=== PATIENT | male | born 1950 | race African-American/Black ===

== ENCOUNTER 2017-06-05 11:21 | Observation (INO) ==
[2017-06-05 11:53] LABS: Basophils # 0.1 10*3/uL (0.0-0.2); Basophils % 1.3 % (0.0-0.8); Eosinophils # 0.1 10*3/uL (0.0-0.87); Eosinophils % 3.5 % (0.00-10.9); Hematocrit 41.5 VOL% (42.0-52.0); Hemoglobin 14.4 GM/DL (14.0-18.0); Lymphocytes # 1.6 10*3/uL (1.4-4.0); Lymphocytes % 41.1 % (21.2-54.2); Mean Corpuscular HGB Conc 34.7 GM/DL (32-36); Mean Corpuscular Hemoglobin 33 PG (27-34); Mean Corpuscular Volume 93.7 FL (87-102); Mean Platelet Volume 9.5 FL (9.6-12.0); Monocytes # 0.3 10*3/uL (0.11-0.8); Monocytes % 8.5 % (1.7-12.7); Neutrophils # 1.8 10*3/uL (1.4-7.4); Neutrophils % 45.6 % (38.7-73.9); Platelet Count 219 T/CUMM (130-400); Red Blood Count 4.43 MC/CUMM (3.8-5.5); Red Cell Distribution Width 13.3 % (9.3-17.3)
[2017-06-05 12:00] LABS: PT Patient Result 10.8 SECS; Partial Thromboplastin Time 28.9 SECS (0-40)
[2017-06-05] MEDS ORDERED: ASPIRIN CHEW 81 MG TABLET PO STA (12:03)
[2017-06-05] MEDS ORDERED: ENOXAPARIN 100 MG/ML SYRINGE SUBCUT STA (12:03)
[2017-06-05] MEDS ORDERED: ENOXAPARIN 80 MG/0.8 ML SYRINGE SUBCUT STA (12:04)
[2017-06-05 12:25] LABS: Alanine Aminotransferase 37 U/L (16-61); Albumin 4.1 G/DL (3.4-5.0); Alkaline Phosphatase 116 U/L (45-117); Aspartate Amino Transferase 27 U/L (0-37); Blood Urea Nitrogen 16 MG/DL (7-18); CKMB % 1.6 %; Calcium 9.2 MG/DL (8.5-10.1); Glucose 89 MG/DL (74-106); Osmolality,Calculated 274.7 MOS/KG (273-304); Potassium 3.9 MMOL/L (3.5-5.1); Sodium 138 MMOL/L (136-145); Total Protein 7.9 G/DL (6.4-8.3); Troponin I Only < 0.015 NG/ML (0.00-0.045)
[2017-06-05] MEDS ORDERED: ENOXAPARIN 80 MG/0.8 ML SYRINGE SUBCUT ONE (12:32)
[2017-06-05] MEDS ORDERED: ASPIRIN CHEW 81 MG TABLET PO ONE (12:33)
[2017-06-05] MEDS ORDERED: MAGNESIUM SULF RIDER 4 GM in PREMIX 1 EACH IV PRN (12:47)
[2017-06-05] MEDS ORDERED: MAGNESIUM SULF RIDER 2 GM in PREMIX 1 EACH IV PRN (12:47)
[2017-06-05] MEDS ORDERED: ZALEPLON 5 MG CAPSULE PO PRN (12:47)
[2017-06-05] MEDS ORDERED: ONDANSETRON 4 MG/2 ML VIAL IV PRN (12:47)
[2017-06-05] MEDS ORDERED: ACETAMINOPHEN/CODEINE 300-30 MG TABLET PO PRN (15:06)
[2017-06-05 16:51] LABS: CKMB % 1.6 %; Troponin I Only 0.016 NG/ML (0.00-0.045)
[2017-06-05] MEDS ORDERED: ATRIPLA PO SCH (21:00)
[2017-06-05 21:03] LABS: Troponin I Only < 0.015 NG/ML (0.00-0.045)
[2017-06-06 06:17] LABS: Magnesium 1.9 MG/DL (1.8-2.4); Risk Ratio 1.87; Thyroid Stimulating Hormone 2.14 uIU/ml (0.358-3.74); VLDL CHOLESTEROL 14.6 MG/DL
[2017-06-06] MEDS ORDERED: ATORVASTATIN 80 MG TABLET PO SCH (09:00)
[2017-06-06 11:59] VITALS: BP 132/87
[2017-06-06] MEDS ORDERED: ENOXAPARIN 40 MG/0.4 ML SYRINGE SUBCUT SCH (12:00)
== END 2017-06-06 15:34 | disposition home or self-care (01) ==
LOC: N.ED 11:21 → N.EDINP 11:21 → N.TELEN 14:32
PROVIDERS: ADMIT Internal Medicine Cardiovascular Disease; ATTEND Internal Medicine Cardiovascular Disease